=== PATIENT | male | born 1995 | race Caucasian/White ===

== ENCOUNTER 2017-09-29 14:04 | Inpatient (IN) | payer MEDICAID, OTHER ==
[~2017-09-29] VITALS: Ht 175.3 cm; Wt 74.5 kg
[2017-09-29] MEDS ORDERED: naloxone 2mg/2ml inj IV ONE (14:10)
[2017-09-29] MEDS ORDERED: normal saline 1000ML IV soln IVB ONE (14:10)
[2017-09-29] MEDS ORDERED: ondansetron/PF 4mg/2ml inj IV ONE (14:10)
[2017-09-29] MEDS ORDERED: LORazepam 2 mg/ml vial ONE ×2 (14:49→15:04)
[2017-09-29] MEDS ORDERED: phenytoin sod inj 1,000 MG in normal saline 100ml IV soln 80 ML IV ONE (15:05)
[2017-09-29] MEDS ORDERED: LORazepam 1 MG tablet PO ONE (15:05)
[2017-09-29] MEDS ORDERED: LORazepam 2 mg/ml vial IV ONE (15:05)
[2017-09-29] MEDS ORDERED: SODIUM CHLORIDE IV ONE ×2 (15:15→15:25)
[2017-09-29] MEDS ORDERED: FOSPHENYTOIN IV ONE ×2 (15:15→15:25)
[2017-09-29 15:26] LABS: BASOPHILS % (AUTO) 0.1 % (0-1); EOSINOPHILS # (AUTO) 0.1 X10'3 (0-0.9); EOSINOPHILS % (AUTO) 0.5 % (0-6); HEMATOCRIT 41.7 % (42.0-52.0); HEMOGLOBIN 13.9 g/dl (14.0-17.9); LYMPHOCYTES # (AUTO) 1.2 X10'3 (1.1-4.8); LYMPHOCYTES % (AUTO) 9.9 % (21-51); MEAN CORPUSCULAR HEMOGLOBIN 28.8 PG (27.0-31.0); MEAN CORPUSCULAR HGB CONC 33.2 % (33.0-36.5); MEAN CORPUSCULAR VOLUME 86.7 FL (78-98); MEAN PLATELET VOLUME 8.1 FL (7.4-10.4); MONOCYTES # (AUTO) 0.7 X10'3 (0-0.9); NEUTROPHILS # (AUTO) 9.7 X10'3 (1.8-7.7); NEUTROPHILS % (AUTO) 83.5 % (42-75); PLATELET COUNT 246 X10'3 (140-440); RED BLOOD COUNT 4.81 X10'6 (4.70-6.10); WHITE BLOOD COUNT 11.7 X10'3 (4.5-11.0)
[2017-09-29 15:34] LABS: INR 1.1 INR; PROTHROMBIN TIME 11.4 SECONDS (9.0-12.0)
[2017-09-29 15:41] LABS: ALANINE AMINOTRANSFERASE 27 U/L (12-78); ALBUMIN/GLOBULIN RATIO 1.1 (1.1-1.5); ALKALINE PHOSPHATASE 77 IU/L (46-116); ANION GAP 11 (8-16); ASPARTATE AMINO TRANSFERASE 24 U/L (10-37); BILIRUBIN,TOTAL 0.5 MG/DL (0.1-1.0); BLOOD UREA NITROGEN 16 MG/DL (7-18); BUN/CREATININE RATIO 19.5 (5.4-32.0); CALCIUM 8.3 MG/DL (8.5-10.1); CHLORIDE 107 MMOL/L (99-107); CREATININE 0.82 MG/DL (0.60-1.10); GLUCOSE 88 MG/DL (70-104); POTASSIUM 3.6 MMOL/L (3.5-5.1); SODIUM 143 MMOL/L (135-145); TOTAL CARBON DIOXIDE 25.3 MMOL/L (24-32); TOTAL PROTEIN 7.6 G/DL (6.4-8.2); eGFR > 90 ML/MIN
[2017-09-29 15:42] LABS: ACETAMINOPHEN < 2.0 UG/ML (10-30); ETHANOL < 0.010 GM/DL (0.0-0.010)
[2017-09-29 15:48] LABS: URINE AMPHETAMINE SCREEN POSITIVE (Neg); URINE BARBITUATE SCREEN NEGATIVE (Neg); URINE BENZODIAZEPINES SCREEN NEGATIVE (Neg); URINE CANNABINOID SCREEN NEGATIVE (Neg); URINE COCAINE SCREEN NEGATIVE (Neg); URINE METHADONE SCREEN NEGATIVE (Neg); URINE OPIATE SCREEN NEGATIVE (Neg); URINE PHENCYCLIDINE SCREEN NEGATIVE (Neg)
[2017-09-29] MEDS ORDERED: magnesium 4gm in 100ml NS 100 ML IV PRN (17:10)
[2017-09-29] MEDS ORDERED: magnesium hydroxide 30ml (MOM) UD suspension PO PRN (17:10)
[2017-09-29] MEDS ORDERED: sodium phosphate inj. 30 MMOL in dextrose 5%-water 250 ML IV PRN (17:10)
[2017-09-29] MEDS ORDERED: magnesium Cl slow-release 64mg tablet PO PRN (17:10)
[2017-09-29] MEDS ORDERED: Neutra Phos packet PO PRN (17:10)
[2017-09-29] MEDS ORDERED: magnesium 2GM in 50ml NS 50 ML IV PRN (17:10)
[2017-09-29] MEDS ORDERED: ondansetron/PF 4mg/2ml inj IV PRN (17:10)
[2017-09-29] MEDS ORDERED: potassium Cl 20 mEq SR tablet PO PRN ×2 (17:10)
[2017-09-29] MEDS ORDERED: sodium phosphate inj. 15 MMOL in dextrose 5%-water 150 ML IV PRN (17:10)
[2017-09-29] MEDS ORDERED: acetaminophen 325mg tablet PO PRN ×2 (17:10)
[2017-09-29 18:09] LABS: LACTIC SEPSIS 0.8 MMOL/L (0.4-2.0)
[2017-09-29] MEDS: normal saline 1000ml 1,000 ML IV SCH (19:17)
[2017-09-29] MEDS: heparin, porcine 5000 units/ml vial SQ SCH (20:29)
[2017-09-30] MEDS ORDERED: phenytoin sod 50mg/ml 2ml vial IV SCH
[2017-09-30] MEDS: FOSPHENYTOIN IV SCH ×3 (00:35→20:22)
[2017-09-30] MEDS: normal saline 1000ml 1,000 ML IV SCH ×4 (03:23→23:46)
[2017-09-30 06:06] LABS: BASOPHILS % (AUTO) 0.8 % (0-1); EOSINOPHILS # (AUTO) 0.1 X10'3 (0-0.9); EOSINOPHILS % (AUTO) 2.6 % (0-6); HEMATOCRIT 38.3 % (42.0-52.0); HEMOGLOBIN 13.1 g/dl (14.0-17.9); LYMPHOCYTES # (AUTO) 1.7 X10'3 (1.1-4.8); LYMPHOCYTES % (AUTO) 30.5 % (21-51); MEAN CORPUSCULAR HEMOGLOBIN 30.3 PG (27.0-31.0); MEAN CORPUSCULAR HGB CONC 34.2 % (33.0-36.5); MEAN CORPUSCULAR VOLUME 88.6 FL (78-98); MEAN PLATELET VOLUME 7.9 FL (7.4-10.4); MONOCYTES # (AUTO) 0.5 X10'3 (0-0.9); MONOCYTES % (AUTO) 9.4 % (2-12); NEUTROPHILS # (AUTO) 3.2 X10'3 (1.8-7.7); NEUTROPHILS % (AUTO) 56.7 % (42-75); PLATELET COUNT 198 X10'3 (140-440); RED BLOOD COUNT 4.32 X10'6 (4.70-6.10); RED CELL DISTRIBUTION WIDTH 13.2 % (11.5-14.5); WHITE BLOOD COUNT 5.6 X10'3 (4.5-11.0)
[2017-09-30 06:47] LABS: ALANINE AMINOTRANSFERASE 25 U/L (12-78); ALBUMIN 3.4 G/DL (3.4-5.0); ALBUMIN/GLOBULIN RATIO 1.1 (1.1-1.5); ALKALINE PHOSPHATASE 64 IU/L (46-116); ANION GAP 10 (8-16); ASPARTATE AMINO TRANSFERASE 19 U/L (10-37); BILIRUBIN,TOTAL 0.6 MG/DL (0.1-1.0); BLOOD UREA NITROGEN 11 MG/DL (7-18); BUN/CREATININE RATIO 17.5 (5.4-32.0); CALCIUM 8.5 MG/DL (8.5-10.1); CHLORIDE 109 MMOL/L (99-107); CREATININE 0.63 MG/DL (0.60-1.10); GLUCOSE 85 MG/DL (70-104); MAGNESIUM 2.3 MG/DL (1.5-2.4); POTASSIUM 4.2 MMOL/L (3.5-5.1); SODIUM 144 MMOL/L (135-145); TOTAL CARBON DIOXIDE 25.5 MMOL/L (24-32); TOTAL PROTEIN 6.5 G/DL (6.4-8.2); eGFR > 90 ML/MIN
[2017-09-30] MEDS: heparin, porcine 5000 units/ml vial SQ SCH ×2 (09:16→20:23)
[2017-09-30] MEDS: pantoprazole 40 MG vial IV SCH (09:17)
[2017-09-30 16:20] VITALS: BP 108/49
[2017-09-30 18:00] VITALS: BP 108/52
[2017-09-30] MEDS ORDERED: naloxone 0.4 mg/ml inj ONE (20:16)
[2017-09-30 22:00] VITALS: BP 98/41
[2017-10-01 03:00] VITALS: BP 95/48
[2017-10-01] MEDS ORDERED: MISCELLANEOUS INJECTION IV SCH (04:00)
[2017-10-01] MEDS ORDERED: MISCELLANEOUS INJECTION IV ONE (04:06)
[2017-10-01 05:38] LABS: BASOPHILS % (AUTO) 0.6 % (0-1); EOSINOPHILS # (AUTO) 0.2 X10'3 (0-0.9); EOSINOPHILS % (AUTO) 3.3 % (0-6); HEMATOCRIT 36.2 % (42.0-52.0); HEMOGLOBIN 12.3 g/dl (14.0-17.9); LYMPHOCYTES % (AUTO) 41.3 % (21-51); MEAN CORPUSCULAR HEMOGLOBIN 29.7 PG (27.0-31.0); MEAN CORPUSCULAR HGB CONC 34.1 % (33.0-36.5); MEAN CORPUSCULAR VOLUME 87.1 FL (78-98); MEAN PLATELET VOLUME 8.3 FL (7.4-10.4); MONOCYTES # (AUTO) 0.4 X10'3 (0-0.9); MONOCYTES % (AUTO) 7.7 % (2-12); NEUTROPHILS # (AUTO) 2.3 X10'3 (1.8-7.7); NEUTROPHILS % (AUTO) 47.1 % (42-75); PLATELET COUNT 186 X10'3 (140-440); RED BLOOD COUNT 4.15 X10'6 (4.70-6.10); RED CELL DISTRIBUTION WIDTH 12.8 % (11.5-14.5); WHITE BLOOD COUNT 4.8 X10'3 (4.5-11.0)
[2017-10-01 06:00] VITALS: BP 103/56
[2017-10-01 06:15] LABS: ALANINE AMINOTRANSFERASE 23 U/L (12-78); ALBUMIN 3.1 G/DL (3.4-5.0); ALKALINE PHOSPHATASE 66 IU/L (20-180); ANION GAP 9 (8-16); ASPARTATE AMINO TRANSFERASE 16 U/L (10-37); BILIRUBIN,TOTAL 0.3 MG/DL (0.1-1.0); BLOOD UREA NITROGEN 13 MG/DL (7-18); BUN/CREATININE RATIO 21.3 (5.4-32.0); CALCIUM 8.2 MG/DL (8.5-10.1); CHLORIDE 108 MMOL/L (99-107); CREATININE 0.61 MG/DL (0.60-1.10); GLUCOSE 84 MG/DL (70-104); POTASSIUM 4.1 MMOL/L (3.5-5.1); SODIUM 141 MMOL/L (135-145); TOTAL CARBON DIOXIDE 24.5 MMOL/L (24-32); TOTAL PROTEIN 6.1 G/DL (6.4-8.2); eGFR > 90 ML/MIN
[2017-10-01] MEDS: pantoprazole 40 MG vial IV SCH (07:49)
[2017-10-01] MEDS: heparin, porcine 5000 units/ml vial SQ SCH ×2 (07:50→21:05)
[2017-10-01] MEDS: normal saline 1000ml 1,000 ML IV SCH ×2 (07:51→16:31)
[2017-10-01] MEDS: FOSPHENYTOIN IV SCH ×3 (08:00→16:31)
[2017-10-01 11:00] VITALS: BP 105/51
[2017-10-01 15:00] VITALS: BP 104/47
[2017-10-01 18:00] VITALS: BP 119/51
[2017-10-01] MEDS: levetiracetam 250mg tablet PO SCH (21:05)
[2017-10-01] MEDS: valproic acid 250mg capsule PO SCH (21:05)
[2017-10-01 22:00] VITALS: BP 114/53
[2017-10-02] MEDS: normal saline 1000ml 1,000 ML IV SCH ×2 (01:08→02:00)
[2017-10-02 02:00] VITALS: BP 105/46
[2017-10-02 05:14] LABS: BASOPHILS % (AUTO) 0.8 % (0-1); EOSINOPHILS # (AUTO) 0.3 X10'3 (0-0.9); EOSINOPHILS % (AUTO) 4.4 % (0-6); HEMOGLOBIN 12.9 g/dl (14.0-17.9); LYMPHOCYTES # (AUTO) 2.4 X10'3 (1.1-4.8); LYMPHOCYTES % (AUTO) 41.7 % (21-51); MEAN CORPUSCULAR HEMOGLOBIN 29.9 PG (27.0-31.0); MEAN CORPUSCULAR HGB CONC 33.9 % (33.0-36.5); MEAN CORPUSCULAR VOLUME 88.1 FL (78-98); MEAN PLATELET VOLUME 8.4 FL (7.4-10.4); MONOCYTES # (AUTO) 0.5 X10'3 (0-0.9); MONOCYTES % (AUTO) 8.7 % (2-12); NEUTROPHILS # (AUTO) 2.5 X10'3 (1.8-7.7); NEUTROPHILS % (AUTO) 44.4 % (42-75); PLATELET COUNT 185 X10'3 (140-440); RED BLOOD COUNT 4.31 X10'6 (4.70-6.10); RED CELL DISTRIBUTION WIDTH 12.9 % (11.5-14.5); WHITE BLOOD COUNT 5.7 X10'3 (4.5-11.0)
[2017-10-02 05:44] LABS: ALANINE AMINOTRANSFERASE 21 U/L (12-78); ALBUMIN 2.9 G/DL (3.4-5.0); ALBUMIN/GLOBULIN RATIO 0.9 (1.1-1.5); ALKALINE PHOSPHATASE 79 IU/L (20-180); ANION GAP 11 (8-16); ASPARTATE AMINO TRANSFERASE 14 U/L (10-37); BILIRUBIN,TOTAL 0.2 MG/DL (0.1-1.0); BLOOD UREA NITROGEN 15 MG/DL (7-18); BUN/CREATININE RATIO 23.8 (5.4-32.0); CALCIUM 8.5 MG/DL (8.5-10.1); CHLORIDE 109 MMOL/L (99-107); CREATININE 0.63 MG/DL (0.60-1.10); GLUCOSE 103 MG/DL (70-104); MAGNESIUM 1.8 MG/DL (1.5-2.4); PHOSPHORUS 4.5 MG/DL (2.3-4.5); POTASSIUM 3.6 MMOL/L (3.5-5.1); SODIUM 146 MMOL/L (135-145); TOTAL CARBON DIOXIDE 26.5 MMOL/L (24-32); TOTAL PROTEIN 6.1 G/DL (6.4-8.2); eGFR > 90 ML/MIN
[2017-10-02 06:00] VITALS: BP 97/57
[2017-10-02] MEDS ORDERED: pantoprazole 40mg Tablet.DR PO SCH (07:30)
[2017-10-02] MEDS: levetiracetam 250mg tablet PO SCH (08:00)
[2017-10-02] MEDS: valproic acid 250mg capsule PO SCH ×2 (08:00→12:51)
[2017-10-02] MEDS: heparin, porcine 5000 units/ml vial SQ SCH (08:00)
[2017-10-02 11:00] VITALS: BP 114/53
[2017-10-02] MEDS ORDERED: VALP250C44 PO (11:01)
[2017-10-02] MEDS ORDERED: LEVE250T PO (11:01)
== END 2017-10-02 13:40 | disposition home or self-care (01) | DRG 53 ==
LOC: ER 14:39 → ED HOLD 17:08 → EDBD 17:08 → MERGE 17:08 → EDBEDREQSVC 09-30 15:27 → PCU 3S 09-30 16:20
PROVIDERS: ADMIT Internal Medicine Critical Care Medicine; ATTEND Legal Medicine
PROC: 4A10X4Z Monitoring of Central Nervous Electrical Activity, External Approach (ICD-10-PCS; principal; 2017-10-02)
DX: G40.409 Other generalized epilepsy and epileptic syndromes, not intractable, without status epilepticus (principal); S09.90XA Unspecified injury of head, initial encounter; D72.829 Elevated white blood cell count, unspecified; F15.129 Other stimulant abuse with intoxication, unspecified; F31.9 Bipolar disorder, unspecified; S00.12XA Contusion of left eyelid and periocular area, initial encounter; F60.9 Personality disorder, unspecified; X58.XXXA Exposure to other specified factors, initial encounter; Y93.89 Activity, other specified; Y92.89 Other specified places as the place of occurrence of the external cause; Y99.8 Other external cause status
CPT/HCPCS: 36415; 70450; 70486; 71045; 80053; 80305; 80320; 80329; 82140; 82948; 83605; 83735; 84100; 84145; 84443; 85025; 85610; 87070; 93005; 95816; 96361; 96365; 96375; 96376; 99285; A4353; C9113; J1165; J1644; J2060; J2310; J2405; J7030